=== PATIENT | female | born 1970 | race Caucasian/White ===

== ENCOUNTER 2017-10-13 15:21 | Inpatient (IN) | payer MEDICAID ==
[~2017-10-13] VITALS: Ht 157.5 cm; Wt 81.2 kg
[~2017-10-13 15:21] MED LIST: ALBUTEROL2.5 MG/NEB INH; GABAPENTIN 400400 MG PO; NAPROSYN 500MG500 MG PO; PREDNISONE 20MG20 MG PO; SPIRIVA HA1 PUFF/INH IH; VENTOLIN H0.09 MG/AC IH
[2017-10-13 15:28] VITALS: BP 121/62
--- OUTSIDE RECORDS SUMMARY | 2017-10-13 15:33 | External Medical Summary Rpt | CCD ---
Author Author , PATIENCE Organization PATIENCE Address Unknown Phone [email or web address] Purpose Continuity of Care Document - 03-15-2016 through 2016 Problems Code Diagnosis DOS Provider Status J44.1 Chronic 08-16-2017 obstructive pulmonary disease with (acute) exacerbatio n J44.9 Chronic 07-21-2017 obstructive pulmonary disease, unspecified F41.1 Generalized 06-05-2017 anxiety disorder E55.9 Vitamin D 03-15-2016 deficiency, unspecified G43.001 Migraine without aura, not intractable , with status migrainosus G43.809 Other migraine, not intractable , without status migrainosus G43.819 Other migraine, intractable , without status migrainosus G89.29 Other chronic pain J20.9 Acute bronchitis, unspecified K52.9 Noninfectiv e gastroenter itis and colitis, unspecified M25.532 Pain in left wrist M51.36 Other interverteb ral disc degeneratio n, lumbar region M54.31 Sciatica, right side M54.5 Low back pain M54.9 Dorsalgia, unspecified M94.0 Chondrocost al junction syndrome (tietze) N39.0 Urinary tract infection, site not specified R06.00 Dyspnea, unspecified R06.02 Shortness of breath R10.84 Generalized abdominal pain R11.2 Nausea with vomiting, unspecified R51 Headache R52 Pain, unspecified R53.83 Other fatigue S60.00XS Contusion of unspecified finger without damage to nail, sequela S60.222A Contusion of left hand, initial encounter S60.229S Contusion of unspecified hand, sequela S63.602A Unspecified sprain of left thumb, initial encounter S70.11XA Contusion of right thigh, initial encounter S80.02XA Contusion of left knee, initial encounter S80.12XA Contusion of left lower leg, initial encounter S93.602A Unspecified sprain of left foot, initial encounter Z00.00 Encounter for general adult medical examination without abnormal findings Z12.31 Encounter for screening mammogram for malignant neoplasm of breast Z12.39 Encounter for other screening for malignant neoplasm of breast Z72.0 Tobacco use Z91.81 History of falling Z99.81 Dependence on supplementa l oxygen
--- OUTSIDE RECORDS SUMMARY | 2017-10-13 15:33 | External Medical Summary Rpt | CCD ---
Author Author , PATIENCE Organization PATIENCE Address Unknown Phone Purpose Continuity of Care Document - 03-15-2016 [...]
--- OUTSIDE RECORDS SUMMARY | 2017-10-13 15:34 | External Medical Summary Rpt | CCD ---
Author Author [employer] Organization [employer] Address Unknown Phone Unavailable Purpose Continuity of Care Document - through 2016
--- OUTSIDE RECORDS SUMMARY | 2017-10-13 15:34 | External Medical Summary Rpt | CCD ---
Author Author , PATIENCE MORIN Address Unknown Phone [email or web address] Name Relationship Address Phone ANNETTA, Next Of Kin Unknown Unavailable SOL Immunization Name Date Rout CVX Reac Dose Comm Prov Is Faci e tion ent ider Refu lity Give sed n Infl 09-2 150 0.5 Hist 1050 No 1050 uenz 2-20 mL oric 0 0 a 17 al Quad Info Inj rmat ion - Sour ce Unsp ecif ied PCV1 08-2 Intr 133 0.5 Hist 1050 No 1050 3 7-20 amus mL oric 0 0 17 cula al r Info rmat ion - Sour ce Unsp ecif ied Infl 01-2 Intr 88 999 Hist 1050 No 1050 uenz 3-20 amus oric 0 0 a, 17 cula al UF r Info rmat ion - Sour ce Unsp ecif ied PPV2 02-0 Intr 33 999 Hist ANDREW No ANDREW 3 8-20 amus oric LO LO 15 cula al r Info rmat ion - Sour ce Unsp ecif ied Infl 02-0 Intr 140 999 Hist ANDREW No ANDREW uenz 8-20 amus oric LO LO a, 15 cula al P-Fr r Info ee rmat ion - Sour ce Unsp ecif ied
--- OUTSIDE RECORDS SUMMARY | 2017-10-13 15:34 | External Medical Summary Rpt | CCD ---
Author Author , PATIENCE MORIN Address Unknown Phone [email or web address] Support Name Relationship Address Phone ANNETTA, Next [...]
--- OUTSIDE RECORDS SUMMARY | 2017-10-13 15:34 | External Medical Summary Rpt ---
Author Author PATIENCE Barton, [employer] Organization [employer] Address Unknown Phone Unavailable
[2017-10-13 15:53] LABS: HEMOGLOBIN 13.3 g/dL (12.2-16.2); LYMPH # 2.6 K/mm3 (0.7-4.5); LYMPH % 42.4 % (10-50.0)
--- NOTE | 2017-10-13 16:02 | Emergency Room Report ---
History of Present Illness Time Seen by 1531 Presenting Problem in Triage Pt arrived:Walked Presenting Problem:COPD EXACERBATION X 3-4 DAYS; CURRENTLY SEE DR LANDEROS ( PULMONOLOGY) WHO HAS HER ON QOD AZITHROMYCIN 200MG. 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 N Clinical Suspician of Infection? N Mental Status: 1 - Regular (Normal Baseline) Sepsis Risk:Low Sepsis Risk Have you (or family members/close friends) recently traveled outside the [place]? N If Yes, where/when: Have you had exposure to infectious disease within the past month? TB? Other? 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 Denies any leg pain or swelling no calf pain complaint. No vomiting or diarrhea or abdominal complaints. Recent states that she is on 1 L of home oxygen. Comment 435 ddimer pending ALLERGIES Coded Allergies: cefaclor (From CECLOR) (RASH/SWELLING 10/13/17) cyclobenzaprine (From FLEXERIL) (RESTLESS LEG 10/13/17) ketorolac (From TORADOL) (RESTLESS LEG 10/13/17) promethazine (From PHENERGAN) (RESTLESS LEG 10/13/17) tramadol (From ULTRAM) (RESTLESS LEG 10/13/17) Home Medications Active Scripts Prednisone (Prednisone 20MG) 20 MG PO BID #10 TAB Prov: 02/28/16 Reported Medications NAPROXEN (NAPROSYN 500MG TAB) 500 MG PO TID GABAPENTIN (Gabapentin) 800 MG PO TID ALBUTEROL (Ventolin Hfa) 1 PUFF IH PRN PRN SHORTNESS OF BREATH Tiotropium Higgins (Spiriva) 1 PUFF IH DAILY ALBUTEROL (Albuterol 0.083% Neb) 2.5 MG INH DAILY History Medical History General CAD? No Angina: No ME: No Hypertension? No Hyperlipidemia? No CHF? No DVT? No PE? No COPD? Yes Asthma? No Anemia? No GERD? No Gastric ulcers? No GI Bleed? No Hernia? No Thyroid Problems? No Hypothyroidism? No CVA? No Seizures? No Diabetes? No Renal Insuffiency? No End Stage Renal Disease? No UTI? No Stones? No BPH? No GB Disease: No Nephritic Syndrome? No Asplenia? No Hepatitis? No Sickle Cell Disease? No Arthritis? No Migraines? No Cataracts? No Glaucoma? No MRSA? No HIV? No TB? No Anxiety? No Depression? No Cancer? No More? 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 Eyes: conjunctiva/corneas clear ENT: Mucous membranes moist. Neck: No jugular venous distention. Cardiac: regular rate and rhythm Lungs: wheezes rhonchi to auscultation bilaterally Abdomen: Nontender, Nondistended, positive bowel sounds, no rebound : No CVA tenderness Extremities: No Homans sign No calf tenderness No swelling in legs Musculoskeletal: No chest wall tenderness Skin: No rashes or lesions to exposed skin. Neurologic: Alert. No gross focal deficits Psychiatric: Normal affect (Maryjane BAUER, Kain) General Appearance normal appearance Respiratory Status No: trachea midline. Cardiovascular normal exam Neurologic alert Medical Decision Making LABS/Meds/Orders Pt receiving controlled substance in ED? No Comment prior CT report reviewed: IMPRESSION: 1. There is new increase density in the left infrahilar region about the lingular bronchus with bronchial thickening and volume loss along the major fissure. This may be postinflammatory/infectious in nature. Neoplasm is not excluded. Follow-up is recommended. Bronchoscopy may for further evaluation of the lingular bronchus. Suggest follow-up CT in 3 months without contrast. 2. Centrilobular emphysematous change. 09/27/17 0820 BONAL / PS AT 1650 AT 0815 547pm she still states she has chest discomfort. Not go away with the breathing treatments here, states is in the type chest pain, d-dimer is negative, A repeat electrocardiogram try some nitroglycerin electrocardiogram is nonspecific here he states this is a new type of chest pain for her, call out to PMD Results/Orders Laboratory Tests 10/13/17 1537: Lactic Acid 0.9 10/13/17 1537: Sodium 138, Potassium 4.0, Chloride 103, Carbon Dioxide 30, BUN 9, Creatinine 0.9, Estimated Creat Clear 88, Estimated GFR (MDRD) 67, Glucose 87, Calcium 9.1, Total Bilirubin 0.6, AST 12 L, ALT 14, Alkaline Phosphatase 84, Creatine Kinase 51, CK-MB (CK-2) Rel Index 1.8, CK and CKMB Interp 0.9, Troponin I < 0.02, Total Protein 7.2, Albumin 4.0, Globulin 3.2, Albumin/Globulin Ratio 1.3, D-Dimer 171, WBC 6.2, RBC 4.73, Hgb 13.3, Hct 42.2, MCV 89.3, RDW 15.0, Plt Count 231, MPV 8.1, Gran % 45.6, Gran # 2.8, Lymphocytes % 42.4, Monocytes % 7.8, Eosinophils % 3.6, Basophils % 0.6, Lymphocytes # 2.6, Monocytes # 0.5, Eosinophils # 0.2, Basophils # 0.0, PUBS MCHC 31.5 L, MCH 28.2 Current Medication Orders Sig/José Luis Start time Last Medication Dose Route Stop Time Status Admin Nitroglycerin 0.4 MG [id number] PRN 10/13 1800 AC SL Albuterol/Ipratropium 3 ML ONCE ONE 10/13 1645 DC INH 10/13 1646 Albuterol/Ipratropium 0 .STK-MED ONE 10/13 1640 DC INH Aspirin 324 MG ONCE ONE 10/13 1615 DCr PO 10/13 1616 Levofloxacin/Dextrose 150 ML ONCE ONE 10/13 1615 DCr IV 10/13 1744 Methylprednisolone 125 MG ONCE ONE 10/13 1615 DC Sodium Succinate IV 10/13 1616 Morphine Sulfate 4 MG ONCE ONE 10/13 1615 DCr IV 10/13 1616 Ondansetron HCl 4 MG ONCE ONE 10/13 1615 DC IV 10/13 1616 Methylprednisolone 0 .STK-MED ONE 10/13 1541 DC Sodium Succinate .ROUTE Albuterol/Ipratropium 0 .STK-MED ONE 10/13 1534 DC INH Albuterol/Ipratropium 3 ML ONCE ONE 10/13 1530 DC 10/13 INH 10/13 1531 1550 Methylprednisolone 125 MG ONCE ONE 10/13 1530 DC 10/13 Sodium Succinate IV 10/13 1531 1545 Sodium Chloride 10 ML PRN PRN 10/13 1530 AC IV 10/14 1524 Orders Procedure Date/time Status ELECTROCARDIOGRAM REQUEST 10/13 1747 Active RT REQUEST DUONEB 10/13 1636 Active D-DIMER 10/13 1604 Complete CULTURE, BLOOD 10/13 1555 Active LACTIC ACID 10/13 1555 Complete RT Aerosol Treatment, Provide 10/13 1550 Active RT Aerosol Treatment, Provide 10/13 1550 Active 12 LEAD EKG-ZORA (INITIAL) 10/13 1530 Active ELECTROCARDIOGRAM REQUEST 10/13 1524 Active RT REQUEST DUONEB 10/13 1524 Active CHEST(2 VIEWS-NOT PORTABLE) 10/13 1524 Active IV SALINE LOCK 10/13 1524 Active OXYGEN PER NURSE 10/13 1524 Active CBC WITH AUTO DIFF 10/13 1524 Complete CARDIAC ENZYMES 10/13 1524 Complete CHEM 12 PROFILE 10/13 1524 Complete 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 Rhythm Normal Sinus Rhythm Rate 89 Ectopy No Comments Electrocardiogram read by myself as nonspecific, normal axis and no ectopy Departure Departure Time of Disposition 1751 Disposition Still a Patient Clinical Impression Primary Impression: Chest pain Qualifiers: Chest pain type: unspecified Qualified Code: R07.9 - Chest pain, unspecified Secondary Impressions: COPD (chronic obstructive pulmonary disease) Qualifiers: COPD type: unspecified COPD Qualified Code: J44.9 - Chronic obstructive pulmonary disease, unspecified Condition STABLE Referrals [facility] MADRID (Family) ED Critical Care Critical Care No at [id number]
--- NOTE | 2017-10-13 16:02 | Emergency Room Report ---
History of Present Illness Time Seen by 1531 Presenting Problem in Triage Pt arrived:Walked Presenting Problem:COPD EXACERBATION X 3-4 DAYS; CURRENTLY SEE DR LANDEROS ( PULMONOLOGY) WHO HAS HER ON QOD AZITHROMYCIN 200MG. 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 N Clinical Suspician of Infection? N Mental Status: 1 - Regular (Normal Baseline) Sepsis Risk:Low Sepsis Risk Have you (or family members/close friends) recently traveled outside the [place]? N If Yes, where/when: Have you had exposure to infectious disease within the past month? TB? Other? 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 Denies any leg pain or swelling no calf pain complaint. No vomiting or diarrhea or abdominal complaints. Recent states that she is on 1 L of home oxygen. Comment 435 ddimer pending ALLERGIES Coded Allergies: cefaclor (From CECLOR) (RASH/SWELLING 10/13/17) cyclobenzaprine (From FLEXERIL) (RESTLESS LEG 10/13/17) ketorolac (From TORADOL) (RESTLESS LEG 10/13/17) promethazine (From PHENERGAN) (RESTLESS LEG 10/13/17) tramadol (From ULTRAM) (RESTLESS LEG 10/13/17) Home Medications Active Scripts Prednisone (Prednisone 20MG) 20 MG PO BID #10 TAB Prov: 02/28/16 Reported Medications NAPROXEN (NAPROSYN 500MG TAB) 500 MG PO TID GABAPENTIN (Gabapentin) 800 MG PO TID ALBUTEROL (Ventolin Hfa) 1 PUFF IH PRN PRN SHORTNESS OF BREATH Tiotropium Braman (Spiriva) 1 PUFF IH DAILY ALBUTEROL (Albuterol 0.083% Neb) 2.5 MG INH DAILY History Medical History General CAD? No Angina: No ND: No Hypertension? No Hyperlipidemia? No CHF? No DVT? No PE? No COPD? Yes Asthma? No Anemia? No GERD? No Gastric ulcers? No GI Bleed? No Hernia? No Thyroid Problems? No Hypothyroidism? No CVA? No Seizures? No Diabetes? No Renal Insuffiency? No End Stage Renal Disease? No UTI? No Stones? No BPH? No GB Disease: No Nephritic Syndrome? No Asplenia? No Hepatitis? No Sickle Cell Disease? No Arthritis? No Migraines? No Cataracts? No Glaucoma? No MRSA? No HIV? No TB? No Anxiety? No Depression? No Cancer? No More? 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 Eyes: conjunctiva/corneas clear ENT: Mucous membranes moist. Neck: No jugular venous distention. Cardiac: regular rate and rhythm Lungs: wheezes rhonchi to auscultation bilaterally Abdomen: Nontender, Nondistended, positive bowel sounds, no rebound : No CVA tenderness Extremities: No Homans sign No calf tenderness No swelling in legs Musculoskeletal: No chest wall tenderness Skin: No rashes or lesions to exposed skin. Neurologic: Alert. No gross focal deficits Psychiatric: Normal affect (Maryjane BAUER, Kain) General Appearance normal appearance Respiratory Status No: trachea midline. Cardiovascular normal exam Neurologic alert Medical Decision Making LABS/Meds/Orders Pt receiving controlled substance in ED? No Comment prior CT report reviewed: IMPRESSION: 1. There is new increase density in the left infrahilar region about the lingular bronchus with bronchial thickening and volume loss along the major fissure. This may be postinflammatory/infectious in nature. Neoplasm is not excluded. Follow-up is recommended. Bronchoscopy may for further evaluation of the lingular bronchus. Suggest follow-up CT in 3 months without contrast. 2. Centrilobular emphysematous change. 09/27/17 0820 BONAL / PS AT 1650 AT 0815 547pm she still states she has chest discomfort. Not go away with the breathing treatments here, states is in the type chest pain, d-dimer is negative, A repeat electrocardiogram try some nitroglycerin electrocardiogram is nonspecific here he states this is a new type of chest pain for her, call out to PMD Results/Orders Laboratory Tests 10/13/17 1537: Lactic Acid 0.9 10/13/17 1537: Sodium 138, Potassium 4.0, Chloride 103, Carbon Dioxide 30, BUN 9, Creatinine 0.9, Estimated Creat Clear 88, Estimated GFR (MDRD) 67, Glucose 87, Calcium 9.1, Total Bilirubin 0.6, AST 12 L, ALT 14, Alkaline Phosphatase 84, Creatine Kinase 51, CK-MB (CK-2) Rel Index 1.8, CK and CKMB Interp 0.9, Troponin I < 0.02, Total Protein 7.2, Albumin 4.0, Globulin 3.2, Albumin/Globulin Ratio 1.3, D-Dimer 171, WBC 6.2, RBC 4.73, Hgb 13.3, Hct 42.2, MCV 89.3, RDW 15.0, Plt Count 231, MPV 8.1, Gran % 45.6, Gran # 2.8, Lymphocytes % 42.4, Monocytes % 7.8, Eosinophils % 3.6, Basophils % 0.6, Lymphocytes # 2.6, Monocytes # 0.5, Eosinophils # 0.2, Basophils # 0.0, PUBS MCHC 31.5 L, MCH 28.2 Current Medication Orders Sig/José Luis Start time Last Medication Dose Route Stop Time Status Admin Nitroglycerin 0.4 MG [id number] PRN 10/13 1800 AC SL Albuterol/Ipratropium 3 ML ONCE ONE 10/13 1645 DC INH 10/13 1646 Albuterol/Ipratropium 0 .STK-MED ONE 10/13 1640 DC INH Aspirin 324 MG ONCE ONE 10/13 1615 DCr PO 10/13 1616 Levofloxacin/Dextrose 150 ML ONCE ONE 10/13 1615 DCr IV 10/13 1744 Methylprednisolone 125 MG ONCE ONE 10/13 1615 DC Sodium Succinate IV 10/13 1616 Morphine Sulfate 4 MG ONCE ONE 10/13 1615 DCr IV 10/13 1616 Ondansetron HCl 4 MG ONCE ONE 10/13 1615 DC IV 10/13 1616 Methylprednisolone 0 .STK-MED ONE 10/13 1541 DC Sodium Succinate .ROUTE Albuterol/Ipratropium 0 .STK-MED ONE 10/13 1534 DC INH Albuterol/Ipratropium 3 ML ONCE ONE 10/13 1530 DC 10/13 INH 10/13 1531 1550 Methylprednisolone 125 MG ONCE ONE 10/13 1530 DC 10/13 Sodium Succinate IV 10/13 1531 1545 Sodium Chloride 10 ML PRN PRN 10/13 1530 AC IV 10/14 1524 Orders Procedure Date/time Status ELECTROCARDIOGRAM REQUEST 10/13 1747 Active RT REQUEST DUONEB 10/13 1636 Active D-DIMER 10/13 1604 Complete CULTURE, BLOOD 10/13 1555 Active LACTIC ACID 10/13 1555 Complete RT Aerosol Treatment, Provide 10/13 1550 Active RT Aerosol Treatment, Provide 10/13 1550 Active 12 LEAD EKG-ZORA (INITIAL) 10/13 1530 Active ELECTROCARDIOGRAM REQUEST 10/13 1524 Active RT REQUEST DUONEB 10/13 1524 Active CHEST(2 VIEWS-NOT PORTABLE) 10/13 1524 Active IV SALINE LOCK 10/13 1524 Active OXYGEN PER NURSE 10/13 1524 Active CBC WITH AUTO DIFF 10/13 1524 Complete CARDIAC ENZYMES 10/13 1524 Complete CHEM 12 PROFILE 10/13 1524 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 Rhythm Normal Sinus Rhythm Rate 89 Ectopy No Comments Electrocardiogram read by myself as nonspecific, normal axis and no ectopy Departure Departure Time of Disposition 1751 Disposition Still a Patient Clinical Impression Primary Impression: Chest pain Qualifiers: Chest pain type: unspecified Qualified Code: R07.9 - Chest pain, unspecified Secondary Impressions: COPD (chronic obstructive pulmonary disease) Qualifiers: COPD type: unspecified COPD Qualified Code: J44.9 - Chronic obstructive pulmonary disease, unspecified Condition STABLE Referrals [facility] M[facility]RID (Family) ED Critical Care Critical Care No at [phone]
[2017-10-13 16:14] LABS: BUN 9 mg/dL (7-18); GFR (ESTIMATED) 67 ML/MIN (59-)
--- OUTSIDE RECORDS SUMMARY | 2017-10-13 18:10 | External Medical Summary Rpt | CCD ---
Author Author , PATIENCE MORIN Address Unknown Phone [email or web address] Support Name Relationship Address Phone ANNETTA, Next [...]
--- OUTSIDE RECORDS SUMMARY | 2017-10-13 18:10 | External Medical Summary Rpt | CCD ---
Author Author , [employer] Organization Address Unknown Phone Unavailable Allergies, Adverse Reactions, Alerts Results Procedures Social History Treatment Plan Family History Vital Signs Medications Problems Health Concerns Immunization Medical Equipment Mental Status Encounters
--- OUTSIDE RECORDS SUMMARY | 2017-10-13 18:10 | External Medical Summary Rpt | CCD ---
Author Author , PATIENCE Organization PATIENCE Address Unknown Phone [email or web address] Purpose Continuity of Care Document - 03-15-2016 [...] falling Z99.81 Dependence on supplementa l oxygen Results Labs Lab Lab Date Result Refere Interp Status Commen Order Detail nces retati t Range on CBC w auto diff (10-13-2017 15:37) Automat = 0.0 0-0.2 complet ed 017 K/MM3 ed blood 15:37 basophi l count (count/ vo Baso % = 0.6 % 0.1-2.0 complet 017 ed 15:37 Automat = 0.2 0.0-0.4 complet ed 017 K/mm3 ed blood 15:37 eosinop hil count Automat = 3.6 % 0.1-12. complet ed 017 0 ed blood 15:37 eosinop hils/10 0 leukocy t Blood = 2.8 1.8-7.8 complet granulo 017 K/mm3 ed cytes 15:37 automat ed count (numb Granulo = 45.6 37.0-80 complet cyte 017 % .0 ed percent 15:37 age Blood = 42.2 37.0-47 complet hematoc 017 % .0 ed rit 15:37 (volume fractio n) Blood = 13.3 12.2-16 complet hemoglo 017 g/dL .2 ed bin 15:37 measure ment (mass/v olum Absolut = 2.6 0.7-4.5 complet e 017 K/mm3 ed lymphoc 15:37 yte count Lymphoc = 42.4 10-50.0 complet yte 017 % ed count, 15:37 blood, automat ed Mean = 28.2 27-31.2 complet corpusc 017 pg ed ular 15:37 hemoglo bin (MCH) determ Automat = 31.5 31.8-35 complet ed 017 g/dl .4 ed erythro 15:37 cyte mean corpusc ular h Automat = 89.3 82.2-97 complet ed 017 fl .8 ed erythro 15:37 cyte mean corpusc ular v Absolut = 0.5 0.1-1.0 complet e 017 K/mm3 ed monocyt 15:37 e count [place] % = 7.8 % 1.7-9.3 complet 017 ed 15:37 Automat = 8.1 7.4-10. complet ed 017 fl 4 ed blood 15:37 platele t mean volume sandra Blood = 231 142-424 complet platele 017 K/mm3 ed t count 15:37 Red = 4.73 4.2-5.4 complet blood 017 M/mm3 ed cell 15:37 count Automat = 15.0 11.5-17 complet ed 017 % .5 ed erythro 15:37 cyte distrib ution width Blood = 6.2 4.8-10. complet leukocy 017 K/MM3 8 ed naheed 15:37 count (number /volume ) Cardiac enzymes (10-13-2017 15:37) Serum 2 = 1.8 0-4.0 complet or 017 U/L ed plasma 15:37 creatin e kinase MB (CK-M Serum = 0.9 0.0-3.6 complet or 017 ng/mL ed plasma 15:37 creatin e kinase MB measu Serum = 51 26-192 complet or 017 U/L ed plasma 15:37 creatin e kinase measure m Serum < 0.02 0.00-0. complet or 017 ng/mL 06 ed plasma 15:37 troponi n i.cardi ac measu Comprehensive metabolic panel (10-13-2017 15:37) Serum 10-13-2 = 1.3 1.1-1.8 complet or 017 ed plasma 15:37 albumin /globul in mass ra Serum 10-13- = 4.0 3.4-5.0 complet or 017 gm/dL ed plasma 15:37 albumin measure ment (mas Serum = 84 46-116 complet or 017 U/L ed plasma 15:37 alkalin e phospha tase sandra Serum 11-18-2 = 0.6 0.2-1.0 complet or 017 mg/dL ed plasma 15:37 total bilirub in measure m Serum 10-13-2 = 9 7-18 complet or 017 mg/dL ed plasma 15:37 urea nitroge n measure men Serum = 9.1 8.5-10. complet or 017 mg/dL 1 ed plasma 15:37 calcium measure ment (mas Serum = 103 98-107 complet or 017 mmoL/L ed plasma 15:37 chlorid e measure ment (mo Carbon = 30 21.0-32 complet dioxide 017 mmoL/L .0 ed 15:37 measure ment Serum = 0.9 0.55-1. complet or 017 mg/dL 02 ed plasma 15:37 creatin ine measure ment ( Estimat = 88 50-200 complet ion of 017 ML/MIN ed creatin 15:37 ine renal clearan ce Estimat = 67 59- complet ed 017 ML/MIN ed glomeru 15:37 lar filtrat ion rate (GF Comment: REFERENCE RANGE: >60 ML/MIN/1.73 SQUARE METERS Comment: If this patient is -Guyanese, then multiply the Comment: result by 1.210. Serum = 3.2 1.3-3.2 complet globuli 017 gm/dL ed n 15:37 measure ment (mass/v olume) Serum = 87 74-106 complet or 017 mg/dL ed plasma 15:37 glucose measure ment (mas Serum = 4.0 3.5-5.1 complet potassi 017 mmoL/L ed um 15:37 measure ment Serum = 138 136-145 complet sodium 017 mmoL/L ed measure 15:37 ment Serum = 12 15-37 complet or 017 U/L ed plasma 15:37 asparta te aminotr ansfera ALT = 14 12-78 complet (SGPT) 017 U/L ed ser/catrachito 15:37 s Protein = 7.2 6.4-8.2 complet total 017 gm/dL ed ser/catrachito 15:37 s Blood lactic acid measurement (moles/vol (10-13-2017 15:37) Blood = 0.9 0.4-2.0 complet lactic 017 mmol/L ed acid 15:37 measure ment (moles/ vol D-dimer (10-13-2017 15:37) D-dimer = 171 0-400 complet 017 ng/mL ed 15:37 Comment: The D-Dimer values are presented in units of mass(ng/mL) of Comment: D-Dimer units(DDU). Comment: Comment: This test has been FDA approved as an aid in the assessment Comment: and evaluation of suspected DIC, and thromboembolic events Comment: including PE and DVT. However, it does not have approval Comment: for cut-off values for the exclusion of these conditions.
--- OUTSIDE RECORDS SUMMARY | 2017-10-13 18:10 | External Medical Summary Rpt | CCD ---
Author Author , PATIENCE MORIN Address Unknown Phone [email or web address] Support Name Relationship Address Phone ANNETTA, Next [...]
--- OUTSIDE RECORDS SUMMARY | 2017-10-13 18:10 | External Medical Summary Rpt | CCD ---
Author Author , PATIENCE Organization PATIENCE Address Unknown Phone [email or web address] Purpose Continuity of Care Document - 03-15-2016 [...] 017 K/mm3 ed monocyt 15:37 e count [place] % = 7.8 % 1.7-9.3 complet 017 [...] SQUARE METERS Comment: If this patient is -Irish, then multiply the Comment: result by 1.210. [...]
[2017-10-13 20:08] VITALS: BP 114/60
[2017-10-13 21:26] VITALS: BP 97/61
[2017-10-14 00:28] VITALS: BP 108/64
[2017-10-14 04:13] VITALS: BP 117/70
[2017-10-14 07:29] LABS: HEMOGLOBIN 12.5 g/dL (12.2-16.2); LYMPH # 0.8 K/mm3 (0.7-4.5); LYMPH % 13.3 % (10-50.0)
[2017-10-14 07:58] VITALS: BP 109/63
[2017-10-14] MEDS ORDERED: ACETAMINOPHEN-H1 TA2 PO (09:05)
[2017-10-14] MEDS ORDERED: DALIRESP500 MCG PO (09:07)
[2017-10-14] MEDS ORDERED: AZELASTINE205.5 MCG1 NS (09:09)
[2017-10-14] MEDS ORDERED: BUSPIRONE HCL15 MG PO (09:11)
[2017-10-14] MEDS ORDERED: FLONASE 50 MCG16 GM (09:12)
[2017-10-14] MEDS ORDERED: SYMBICORT1 AE1 IH (09:13)
[2017-10-14] MEDS ORDERED: PANTOPRAZOLE SO40 M1 PO (09:13)
[2017-10-14 11:26] VITALS: BP 116/69
--- NOTE | 2017-10-14 11:57 | PHARMACY CLINIC NOTE ---
Patient Demographics Patient Demographics Admission date: 10/13/17 Date: 10/14/17 Time: 1156 Allergies Coded Allergies: cefaclor (From CECLOR) (RASH/SWELLING 10/13/17) cyclobenzaprine (From FLEXERIL) (RESTLESS LEG 10/13/17) ketorolac (From TORADOL) (RESTLESS LEG 10/13/17) promethazine (From PHENERGAN) (RESTLESS LEG 10/13/17) tramadol (From ULTRAM) (RESTLESS LEG 10/13/17) HEIGHT- FT: 5 IN: 2.00 K.194 VTE General Information Labs: Laboratory Tests 10/14 10/13 0716 1537 Hematology Hgb (12.2 - 16.2 g/dL) 12.5 13.3 Hct (37.0 - 47.0 %) 40.2 42.2 Plt Count (142 - 424 K/mm3) 204 231 Disclaimer The following section includes nursing documentation that has been pulled in for pharmacy review. Patient's VTE score: 1 Patient's VTE Risk: VERY LOW RISK Clinical trial participant? No VTE prophylaxis NQF [id number] VTE prophylaxis ordered? Yes Type of prophylaxis/treatment: MARCIAL at 1156
--- NOTE | 2017-10-14 13:48 | HISTORY AND PHYSICAL REPORT ---
See Addendum History and Physical (FCA) Date of admission: 10/13/17 Chief complaint: chest congestion and pain History: History of Present Illness: The patient is a 47 year old female patient of Dr. Kevin Henry in [place], [place]. She presented to [facility] ER with a 3 day history of increasing chest congestion , cough, trouble breathing and some right sided chest pain. She has a history of COPD and tobacco use and states that other than the chest pain this feels like a typical COPD exacerbation. She had been prescribed some steroids but had not picked the prescription up from the pharmacy. Patient smokes 1.5 to 2 packs of cigarettes per day. Past Medical History: Medical History: CAD? No Angina: No CO: No Hypertension? No Hyperlipidemia? No CHF? No DVT? No PE? No COPD? Yes Asthma? No Anemia? No GERD? Yes Gastric ulcers? No GI Bleed? No Hernia? No Thyroid Problems? No Hypothyroidism? No CVA? No Seizures? No Diabetes? No Renal Insuffiency? No UTI? No Stones? No BPH? No GB Disease: No Nephritic Syndrome? No Asplenia? No Hepatitis? No Sickle Cell Disease? No Arthritis? No Migraines? No Cataracts? No Glaucoma? No MRSA? No HIV? No TB? No Anxiety? Yes Depression? No Cancer? No More? Yes Additional hx: Chronic back pain with sciatica Allergic Rhinitis Surgical history: Previous Surgery?Y RIGHT KNEE MENISCUS HYSTERECTOMY Medications: Reported Medications HYDROCODONE/ACETAMINOPHEN (Hydrocodon-Acetaminophen 5-325) 1 TAB PO Q6H6 #20 Roflumilast (Daliresp) 500 MCG PO DAILY #30 AZELASTINE HCL (Azelastine Hydrochloride) 205.5 MCG NS DAILY #30 Buspirone Hcl 15 MG PO DAILY #60 Fluticasone Propionate (Flonase 50 Mcg Nasal [place]) 1 SPRAY NA BID #16 BUDESONIDE/FORMOTEROL FUMARATE (Symbicort 160-4.5 Mcg Inhaler) 1 PUFF IH BID #10 Pantoprazole Sodium 40 MG PO DAILY #30 NAPROXEN (NAPROSYN 500MG TAB) 500 MG PO TID GABAPENTIN (Gabapentin) 800 MG PO TID ALBUTEROL (Ventolin Hfa) 1 PUFF IH PRN PRN SHORTNESS OF BREATH Tiotropium [place] (Spiriva) 1 PUFF IH DAILY ALBUTEROL (Albuterol 0.083% Neb) 2.5 MG INH DAILY Allergies: Coded Allergies: cefaclor (From CECLOR) (RASH/SWELLING 10/13/17) cyclobenzaprine (From FLEXERIL) (RESTLESS LEG 10/13/17) ketorolac (From TORADOL) (RESTLESS LEG 10/13/17) promethazine (From PHENERGAN) (RESTLESS LEG 10/13/17) tramadol (From ULTRAM) (RESTLESS LEG 10/13/17) Family History: Family history: Postive for: unknown (non contributory). Social History: Smoking Hx Tobacco: Yes Smoker: Former Smoker Type: Cigarettes Packs/day: < 1 Pack Are you exposed to second hand No Alcohol: Alcohol: No Hx of Drug Use: Drug Use? No Review of Systems: Patient unresponsive? No Constitutional No: chills, recent weight loss. ENT No: nose bleed. Cardiovascular Positive for: PND. GI No: abdominal pain, diarrhea, vomitting. (female) No: hematuria. Skin No: rash. Neurological No: dizziness. Eyes No: vision loss. Musculoskeletal Positive for: lumbar pain. Psychiatric No: agitation, change in mental status. 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02 10/13/171536: Lactic Acid 0.9 10/13/171536: Sodium 138, Potassium 4.0, Chloride 103, Carbon Dioxide 30, BUN 9, Creatinine 0.9, Estimated Creat Clear 88, Estimated GFR (MDRD) 67, Glucose 87, Calcium 9.1, Total Bilirubin 0.6, AST 12 L, ALT 14, Alkaline Phosphatase 84, Creatine Kinase 51, CK-MB (CK-2) Rel Index 1.8, CK and CKMB Interp 0.9, Troponin I < 0.02, Total Protein 7.2, Albumin 4.0, Globulin 3.2, Albumin/Globulin Ratio 1.3, D-Dimer 171, WBC 6.2, RBC 4.73, Hgb 13.3, Hct 42.2, MCV 89.3, RDW 15.0, Plt Count 231, MPV 8.1, Gran % 45.6, Gran # 2.8, Lymphocytes % 42.4, Monocytes % 7.8, Eosinophils % 3.6, Basophils % 0.6, Lymphocytes # 2.6, Monocytes # 0.5, Eosinophils # 0.2, Basophils # 0.0, PUBS MCHC 31.5 L, MCH 28.2 Microbiology 10/13 1537 BLOOD: Anaerobic Blood Culture - RECD 10/13 1537 BLOOD: Aerobic Blood Culture - RECD 10/13 1537 BLOOD: Anaerobic Blood Culture - RECD 10/13 1537 BLOOD: Aerobic Blood Culture - RECD Radiology results: Results: Preliminary CXR report is no consolidation c/w pneumonia is present. Previous chest CT showed a left sided density, with f/u CT vs Bronchoscopy recommended. Diagnosis(es): 1. COPD exacerbation Status: Acute 2. COPD (chronic obstructive pulmonary disease) Status: Chronic 3. Chest pain Status: Acute 4. Sciatica, right side Status: Chronic 5. Allergic rhinitis Status: Chronic 6. GERD (gastroesophageal reflux disease) Status: Chronic Plan: Patient admitted for further treatment of her COPD exacerbation, see orders. at 1350
[2017-10-14 19:35] VITALS: BP 102/58
[2017-10-14 20:14] VITALS: BP 104/61
--- NOTE | 2017-10-14 22:06 | RADIOLOGY REPORT PS360 ---
CHEST(2 VIEWS-NOT PORTABLE) Ordering Physician: Kain Wesley MD Patient Age: 47 years: Female HISTORY: SOA short of breath for one week. Smoking 2 months ago. TECHNIQUE: PA and lateral chest COMPARISON :CT chest 09/26/2017. FINDINGS Recent CT showed slight increased density at the left left umberto and infrahilar region along the left lingular bronchus of subtle changes here LEFT LUNG On today's plain film we see only some slight accentuation and crowding markings at left infrahilar region, more so than right. Difficult to exclude minimal peribronchial infiltrate or postinflammatory scarring in this region. However there this does seem to a subtle change since November 2016 CXR 2 view. Mild accentuation of markings in this region The left upper lung vitale clear unremarkable. RIGHT LUNG. Upper normal markings are seen at the right infrahilar region towards right lower lobe on today's plain film. Most likely stable reflecting mild chronic change is similar to January 2017..-This area was unremarkable on recent CT chest. Underlying emphysematous changes with hyperexpansion most evident at the upper lung vitale. Heart normal size & & mediastinal structures otherwise unremarkable. Chest wall unremarkable. T-spine intact. Mild dextroscoliosis T-spine. IMPRESSION: . COPD. Emphysematous changes..... Compared to prior Nov 2016 CXR, note subtle accentuation markings left infrahilar region & towards medial left base. This seems to correspond with modest increased density this area on recent 09/26/[address]-Nonspecific on plain film. Could reflect inflammatory vs postinflammatory change, but warrants close follow-up or further investigation as discussed on recent CT .
[2017-10-15] VITALS (8 sets, daily range): BP systolic 97–115; BP diastolic 41–74
--- NOTE | 2017-10-15 08:29 | ACUTE CARE PROGRESS NOTE (QUA) ---
Progress Notes Subjective Date 10/15/17 Time 0827 Note Patient with no new complaints, she is still wheezing today. Objective Findings Vital Signs Date Time Temp Pulse Resp B/P Pulse O2 O2 Flow FiO2 Ox Delivery Rate 10/15 0730 2 10/15 0653 22 10/15 0618 2 10/15 0558 2 10/15 0558 94 OXYGEN 2 10/15 0457 2 10/15 0417 2 10/15 0417 97.8 80 22 97/52 92 ROOM AIR 10/15 0334 22 10/15 0325 2 10/15 0310 90 ROOM AIR 10/15 0157 2 10/15 0111 2 10/15 0001 2 10/15 0001 98.2 94 22 102/58 92 ROOM AIR 10/14 2313 20 10/14 2300 2 10/14 2205 2 10/14 2100 2 10/14 2054 20 10/14 2014 2 10/14 2014 98.7 84 20 104/61 91 ROOM AIR 10/14 1935 98.2 94 22 102/58 92 10/14 1847 2 10/14 1824 2 10/14 1816 20 10/14 1800 2 10/14 1737 2 10/14 1600 2 10/14 1549 98.3 92 20 94 ROOM AIR 10/14 1500 2 10/14 1400 2 10/14 1356 20 10/14 1300 2 10/14 1200 2 10/14 1154 20 10/14 1134 94 OXYGEN 2 10/14 1126 98.3 85 20 116/69 91 ROOM AIR 10/14 1100 2 10/14 1000 2 10/14 0919 20 10/14 0900 2 10/14 0851 98.3 98 20 109/63 90 2 I&O Past 24 Hrs-ending at 0700 10/15 0700 Intake Total 840 Output Total Balance 840 Last VS-Temp:97.8 B/P:97/52 Pulse:80 Resp:22 SaO2:94 ROOM AIR Last weight lbs:179 oz:0 K.194 Method:Bed Scales Exam General appearance: alert, no acute distress Cardiovascular: regular rate & rhythm Respiratory: wheezing (diffuse) Assessment/Plan Problem List 1. COPD exacerbation Status: Acute 2. COPD (chronic obstructive pulmonary disease) Status: Chronic 3. Chest pain Status: Acute 4. Sciatica, right side Status: Chronic 5. Allergic rhinitis Status: Chronic 6. GERD (gastroesophageal reflux disease) Status: Chronic This inpt stay is expected to cross 2 MNs from start of care Yes Comments: Patient slowly improving, continue current care. at 0899
[2017-10-16 00:30] VITALS: BP 97/61
[2017-10-16 04:30] VITALS: BP 95/57
[2017-10-16 07:03] LABS: HEMOGLOBIN 12.4 g/dL (12.2-16.2); LYMPH # 2.7 K/mm3 (0.7-4.5); LYMPH % 42.4 % (10-50.0)
[2017-10-16 08:00] VITALS: BP 105/72
[2017-10-16] MEDS ORDERED: PREDNISONE 20MG20 MG PO (09:14)
[2017-10-16] MEDS ORDERED: PROMETHAZINE D240 ML PO (09:17)
[2017-10-16] MEDS ORDERED: AZITHROMYCIN250 M1 PO (09:19)
--- NOTE | 2017-10-16 09:25 | ACUTE CARE PROGRESS NOTE (QUA) ---
Progress Notes Subjective Date 10/16/17 Time 0920 Note Patient feels better today, less SOB, wants to go home. Objective Findings Laboratory Tests 10/16/17 0625: Sodium 146 H, Potassium 4.5, Chloride 108 H, Carbon Dioxide 32, BUN 23 H, Creatinine 0.8, Estimated Creat Clear 110, Estimated GFR (MDRD) 77, Glucose 75, Calcium 9.4, WBC 6.4, RBC 4.48, Hgb 12.4, Hct 41.0, MCV 91.5, RDW 14.7, Plt Count 184, MPV 8.0, Gran % 46.6, Gran # 3.0, Lymphocytes % 42.4, Monocytes % 6.0 , Eosinophils % 4.4, Basophils % 0.5, Lymphocytes # 2.7, Monocytes # 0.4, Eosinophils # 0.3, Basophils # 0.0, PUBS MCHC 30.3 L, MCH 27.7 Vital Signs Date Time Temp Pulse Resp B/P Pulse O2 O2 Flow FiO2 Ox Delivery Rate 10/16 0903 2 10/16 0800 98.1 101 20 105/72 92 ROOM AIR 10/16 0641 2 10/16 0608 18 10/16 0551 2 10/16 0551 96 OXYGEN 2 10/16 0544 2 10/16 0457 2 10/16 0430 2 10/16 0430 98.4 75 18 95/57 95 ROOM AIR 10/16 0257 2 10/16 0150 2 10/16 0057 2 10/16 0030 2 10/16 0030 98.2 72 18 97/61 93 ROOM AIR 10/15 2254 2 10/15 2202 2 10/153 22 10/155 2 10/15 2005 98.1 86 22 115/73 93 2 10/15 2003 98.1 86 22 115/73 93 ROOM AIR 10/15 1951 88 ROOM AIR 10/15 1924 22 10/15 1659 22 10/15 1610 98.2 84 22 108/74 91 ROOM AIR 10/15 1520 2 10/15 1519 18 10/15 1259 18 10/15 1255 2 10/15 1220 98.4 84 18 97/41 98 ROOM AIR 10/15 1109 2 10/15 1107 18 I&O Past 24 Hrs-ending at 0700 10/16 0700 Intake Total 933 Output Total Balance 933 Last VS-Temp:98.1 B/P:105/72 Pulse:101 Resp:20 SaO2:92 ROOM AIR Last weight lbs:179 oz:0 K.194 Method:Bed Scales Exam General appearance: alert, awake, no acute distress Cardiovascular: regular rate & rhythm Respiratory: good air movement, wheezing (rare) Assessment/Plan Problem List 1. COPD exacerbation Status: Acute 2. COPD (chronic obstructive pulmonary disease) Status: Chronic 3. Chest pain Status: Acute 4. Sciatica, right side Status: Chronic 5. Allergic rhinitis Status: Chronic 6. GERD (gastroesophageal reflux disease) Status: Chronic This inpt stay is expected to cross 2 MNs from start of care Yes Comments: Improved, plan discharge home today, f/u with Dr. Henry next week, recommended smoking cessation. at 0924
[2017-10-16 09:52] VITALS: BP 105/72
[2017-10-16 10:16] VITALS: BP 105/72
--- NOTE | 2017-10-17 13:23 | DISCHARGE SUMMARY STANDARD ---
Discharge Summary (FCA2) Date of admission: 10/13/17 Date of discharge: 10/16/17 Problem List: 1. COPD exacerbation 2. COPD (chronic obstructive pulmonary disease) 3. Chest pain 4. Sciatica, right side 5. Allergic rhinitis 6. GERD (gastroesophageal reflux disease) History of present illness: The patient is a 47 year old female patient of Dr. Kevin Madrid in [place], [place]. She presented to [facility] ER with a 3 day history of increasing chest congestion , cough, trouble breathing and some right sided chest pain. She has a history of COPD and tobacco use and stated that other than the chest pain, this felt like a typical COPD exacerbation. She had been prescribed some steroids but had not picked the prescription up from the pharmacy. Patient smokes 1.5 to 2 packs of cigarettes per day. 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 Her CXR showed COPD and a subtle accentuation of markings in the left infrahilar region & towards medial left base. This seemed to correspond with modest increased density in this area on recent 09/26/2017 CT. Radiology recommended close f/u with CT or bronchoscopy. The patient improved throughout her stay and was stable to be discharged home. She will f/u with Dr. Madrid next week, Dr. Serna recommended smoking cessation. Discharge medications: Continue taking these medications: NAPROXEN (NAPROSYN 500MG TAB) 500 MG TABLET 500 MILLIGRAM ORAL THREE TIMES A DAY GABAPENTIN (Gabapentin) 400 MG CAPSULE 800 MILLIGRAM ORAL THREE TIMES A DAY ALBUTEROL (Ventolin Hfa) 8 GM HFA.AER.AD 1 PUFF INHALATION As Needed as needed for SHORTNESS OF BREATH Tiotropium [place] (Spiriva) 18 MCG CAP.W.DEV 1 PUFF INHALATION DAILY ALBUTEROL (Albuterol 0.083% Neb) 2.5 MG/3 ML NEB 2.5 MILLIGRAM INHALATION (NEB) DAILY HYDROCODONE/ACETAMINOPHEN (Hydrocodon-Acetaminophen 5-325) 1 EACH TABLET 1 TABLET ORAL EVERY 6 HRS-(05/07/05/07) Qty = 20 Roflumilast (Daliresp) 500 MCG TABLET 500 MICROGRAM ORAL DAILY Qty = 30 AZELASTINE HCL (Azelastine Hydrochloride) 205.5 MCG/0.137 ML SPRAY.PUMP 205.5 MICROGRAM NASAL DAILY Qty = 30 Buspirone Hcl (Buspirone Hcl) 15 MG TABLET 15 MILLIGRAM ORAL DAILY Qty = 60 Fluticasone Propionate (Flonase 50 Mcg Nasal [place]) 16 GM SPRAY.SUSP 1 SPRAY Nasal TWICE A DAY Qty = 16 BUDESONIDE/FORMOTEROL FUMARATE (Symbicort 160-4.5 Mcg Inhaler) 10.2 GM HFA.AER.AD 1 PUFF INHALATION TWICE A DAY Qty = 10 Pantoprazole Sodium (Pantoprazole Sodium) 40 MG TABLET.DR 40 MILLIGRAM ORAL DAILY Qty = 30 Start taking the following new medications: Prednisone (Prednisone 20MG) 20 MG TABLET 20 MILLIGRAM ORAL DAILY Qty = 5 No Refills PROMETHAZINE/DEXTROMETHORPHAN (Promethazine-Dm Syrup) 240 ML SYRUP 5 MILLILITER ORAL EVERY 6 HOURS NEEDED as needed for cough Days = 15 Refills = 1 Azithromycin (Azithromycin 250MG Tab) 250 MG TABLET 500 MILLIGRAM ORAL DAILY Days = 3 No Refills Disposition: F/U with: KEVIN MADRID Follow up: 7 DAYS Activity: Cont Current activity Diet: Continue same diet Discharge to: HOME Agency needed? N at 1327
== END 2017-10-16 10:12 | disposition home or self-care (01) | DRG 192 ==
LOC: ER 15:21 → 2ND 18:07
PROVIDERS: Emergency Medicine; Family Medicine
DX: J44.1 Chronic obstructive pulmonary disease with (acute) exacerbation (principal); Z87.891 Personal history of nicotine dependence
CPT/HCPCS: J1956; J2405